=== PATIENT | female | born 1970 | race Caucasian/White ===

== ENCOUNTER 2017-02-07 08:40 | Emergency (ER) | payer BC ==
[2017-02-07 08:48] VITALS: BP 119/64
--- NOTE | 2017-02-07 10:05 | UC ---
UC General HPI - HPI Summary HPI Summary: complaint of needing med refill has fibromyalgia takes celebrex and tramadol takes tramadol-take s 50 mg PO TID left [place] without medication because it was too soon for refill tired to call your MD but can't send rx d/t SHANTELLES tried to call mother's PCP but couldn't get help and was told to go to urgent care has 6 tablets left for today - History of Current Complaint Chief Complaint: UCMedRefill Stated Complaint: MED REFILL Time Seen by Provider: 02/07/17 09:52 Hx Obtained From: Patient - Allergy/Home Medications Allergies/Adverse Reactions: Allergies Allergy/AdvReac Type Severity Reaction Status Date / Time Penicillins Allergy Severe Rash Verified 01/28/15 20:11 Home Medications: Home Medications Estrogens, Conjugated [Premarin] 0.3 mg PO 02/07/17 [History] Fludrocortisone Acetate TAB* [Florinef TAB*] 0.1 mg PO DAILY 02/07/17 [History Confirmed 02/07/17] Liothyronine TAB* [Cytomel TAB*] 5 mcg PO DAILY 02/07/17 [History Confirmed ] PMH/Surg Hx/FS Hx/Imm Hx Previously Healthy: Yes - fibromyalgai Endocrine History: Hypothyroidism - Surgical History Surgical History: Yes Surgery Procedure, Year, and Place: HYSTERECTOMY, 3 C-SECTIONS, 2 LARAPOSCOPIES - Family History Known Family History: Negative: Cardiac Disease, Hypertension, Diabetes - Social History Occupation: Employed Full-time Lives: With Family Alcohol Use: None Substance Use Type: None Smoking Status (MU): Never Smoked Tobacco Review of Systems Constitutional: Negative Skin: Negative Eyes: Negative ENT: Negative Respiratory: Negative Cardiovascular: Negative Gastrointestinal: Negative Genitourinary: Negative Motor: Negative Neurovascular: Negative Musculoskeletal: Other: - muscle pain Neurological: Negative Psychological: Negative All Other Systems Reviewed And Are Negative: Yes Physical Exam Triage Information Reviewed: Yes Appearance: No Pain Distress, Well-Nourished Vital Signs: Initial Vital Signs Temp 98.8 F 02/07/17 08:43 Pulse 91 02/07/17 08:43 Resp 16 02/07/17 08:43 BP 119/64 02/07/17 08:43 Pulse Ox 99 02/07/17 08:43 Vital Signs Reviewed: Yes Eyes: Positive: Conjunctiva Clear ENT: Positive: Pharynx normal, TMs normal Neck: Positive: No Lymphadenopathy Respiratory: Positive: Lungs clear, Normal breath sounds, No respiratory distress Cardiovascular: Positive: RRR, No Murmur, Pulses Normal Musculoskeletal: Positive: No Edema Neurological: Positive: Alert Psychological Exam: Normal Skin Exam: Normal Course/Dx - Differential Dx - Multi-Symptom Differential Diagnoses: Other - med refill Provider Diagnoses: med refill Discharge - Discharge Plan Condition: Stable Disposition: HOME Prescriptions: traMADol TAB* [Ultram*] 50 mg PO Q8H PRN #66 tab MDD 6 PRN Reason: Pain Patient Education Materials: Fibromyalgia (ED) Referrals: Non Staff,Doctor [Primary Care Provider] - [facility] [Outside] Additional Instructions: Please review your discharge instructions. If your symptoms do not improve please call your primary care provider or return to urgent care.
== END 2017-02-07 10:14 | disposition home or self-care (01) ==
LOC: UCEAST 08:40
DX: Z76.0 Encounter for issue of repeat prescription (principal); M79.7 Fibromyalgia; E03.9 Hypothyroidism, unspecified
CPT/HCPCS: 99212; G0463